=== PATIENT | female | born 1990 | race Two or more races ===

== ENCOUNTER → 2018-02-21 | Outpatient (CLI) | payer MEDICAID | LOC: FIMAGING 11:18 → EDSTATUS 11:19 | PROVIDERS: ATTEND Internal Medicine Hematology & Oncology | DX: J40 Bronchitis, not specified as acute or chronic (principal) ==

== ENCOUNTER → 2018-03-26 | Outpatient (CLI) | payer MEDICAID | LOC: FIMAGING 15:31 ==

== ENCOUNTER 2018-05-06 07:47 | Day surgery (SDC) | payer MEDICAID ==
[2018-05-06] MEDS ORDERED: fentaNYL 100 MCG/2 ML INJ IVP PRN (08:18)
[2018-05-06] MEDS ORDERED: HEPARIN 10,000 UNIT/10 ML MDV (1,000 UNIT/ML) IVP PRN (08:18)
[2018-05-06] MEDS ORDERED: FLUMAZENIL 0.5 MG/5 ML MDV IVP PRN (08:18)
[2018-05-06] MEDS ORDERED: GLUCAGON HCL 1 MG VIAL IVP PRN (08:18)
[2018-05-06] MEDS ORDERED: PROTAMINE SULFATE 50 MG/5 ML VIAL IVP PRN (08:18)
[2018-05-06] MEDS ORDERED: MIDAZOLAM 2 MG/2 ML VIAL IVP PRN (08:18)
[2018-05-06] MEDS ORDERED: ALTEPLASE 2 MG VIAL IVP PRN (08:18)
[2018-05-06] MEDS ORDERED: NALOXONE HCL 0.4 MG/ML INJ IVP PRN (08:18)
[2018-05-06] MEDS ORDERED: MEPERIDINE 25 MG/ML SYR IVP PRN (08:18)
[2018-05-06] MEDS ORDERED: NS 1,000 ML IV SCH ×2 (08:30→10:45)
[2018-05-06] MEDS ORDERED: IOPAMIDOL (ISOVUE-300) 100 ML BTL ONE ×2 (08:38→10:33)
[2018-05-06 08:46] LABS: INR 0.96 (0.83-1.16); PROTIME(PATIENT) 12.4 SEC (12.0-15.0)
--- NOTE | 2018-05-06 08:47 | PDPROPOC ---
Sedation Plan of Care Sedation Plan of Care: vital signs stable, mental status noted, patient educated of risks, benefits, alternatives, patient can tolerate sedation ASA Classification: ASA 2 Planned drugs: fentanyl, midazolam Mallampati Score: Class 3 Mallampati Reference Image: Patient passed 3-3-2 rule?: Yes
--- NOTE | 2018-05-06 08:48 | PDRADPRE ---
Radiology History & Physical Indication for procedure: liver disease (mCRC right lobe metastasis. Plan for RONI-TACE) Home medications: Albuterol 05/02/18 [Last Taken Unknown] Clonazepam 1 mg PO PRN PRN 05/02/18 [Last Taken Unknown] Lidocaine TP DAILY 05/02/18 [Last Taken Unknown] Tizanidine HCl PO 05/02/18 [Last Taken Unknown] Tresiba 100 mg 05/02/18 [Last Taken Unknown] morphINE IR 15 mg (*) 15 mg PO Q4-6PRN PRN 05/02/18 [Last Taken Unknown] oxyCODONE IR 10 mg PO Q4-6PRN PRN 05/02/18 [Last Taken Unknown] Allergies/Adverse Reactions: acetaminophen [From Tylenol] Allergy (Verified 05/02/18 10:41) metformin Allergy (Verified 05/02/18 10:41) Penicillins Allergy (Verified 05/02/18 10:41) Mental status: A&Ox3 Heart exam: regular rate and rhythm Lungs exam: clear to auscultation Mallampati Score: Class 3
[2018-05-06] MEDS ORDERED: MICRON MICROSPH MISC ONE (09:00)
[2018-05-06] MEDS ORDERED: IRINOTECAN MISC ONE (09:00)
[2018-05-06] MEDS ORDERED: KETOROLAC 30 MG/1 ML SDV ONE (09:13)
[2018-05-06] MEDS ORDERED: KETOROLAC 30 MG/1 ML SDV IVP ONE (09:30)
[2018-05-06] MEDS ORDERED: MIDAZOLAM 2 MG/2 ML VIAL ONE (10:18)
[2018-05-06] MEDS ORDERED: fentaNYL 100 MCG/2 ML INJ ONE (10:18)
[2018-05-06] MEDS ORDERED: ONDANSETRON 4 MG/2 ML VIAL ONE (10:20)
[2018-05-06 10:34] VITALS: BP 154/100
[2018-05-06] MEDS ORDERED: ONDANSETRON 4 MG/2 ML VIAL IVP PRN (10:35)
[2018-05-06] MEDS ORDERED: PROMETHAZINE HCL 25 MG/ML INJ IVP PRN (10:35)
[2018-05-06] MEDS ORDERED: oxyCODONE IR 5 MG TAB PO PRN (10:37)
[2018-05-06] MEDS ORDERED: HYDROmorphONE/DILAUDID 1 MG/ML INJ IVP PRN (10:38)
--- NOTE | 2018-05-06 10:40 | PDRADPN ---
Radiology Procedure Note Date of Procedure: 05/06/18 Radiologist: Rex Ponce Anesthesia: IV Sedation Pre-op Diagnosis: mCRC Post-op Diagnosis: mCRC Indication: Right lobe metasasis Procedure: RONI-TACE Finding(s): Right lobe posterior segment 6 branch treated with 100 mg irinotecan. No complications. Inf/Abcess present in the surg proc area at time of surgery?: No
[2018-05-06] MEDS ORDERED: LIDOCAINE 1% 300 MG/30 ML SDV ONE (10:47)
[2018-05-06] MEDS ORDERED: oxyCODONE IR 5 MG TAB ONE (11:34)
== END 2018-05-06 13:04 | disposition home or self-care (01) ==
LOC: FIMAGING 07:47
PROVIDERS: ATTEND Radiology Vascular & Interventional Radiology
PROC: 04L33DZ Occlusion of Hepatic Artery with Intraluminal Device, Percutaneous Approach (ICD-10-PCS; principal; 2018-05-06)
PROC: B40 Imaging, Lower Arteries, Plain Radiography (ICD-10-PCS; principal; 2018-05-06)
DX: C78.7 Secondary malignant neoplasm of liver and intrahepatic bile duct (principal); Z85.048 Personal history of other malignant neoplasm of rectum, rectosigmoid junction, and anus; Z90.49 Acquired absence of other specified parts of digestive tract
CPT/HCPCS: 36245; 36247; 37243; 75726; 99152; C1769; C1894; J1170; J1200; J1885; J2250; J2405; J3010; J9206; Q9967